=== PATIENT | female | born 1940 | race African-American/Black ===

== ENCOUNTER 2020-03-13 19:02 | Emergency (ER) | payer OTHER ==
[~2020-03-13] VITALS: Ht 167.6 cm; Wt 90.7 kg
[~2020-03-13 19:02] MED LIST: AMLO5TAB15 PO; ASPI-404 PO; ATEN50TA PO; CLON0.3T46 PO; FURO1TAB31 PO; GABA-339 PO; GLIP10TA9 PO; LISI30TA4 PO; LISI40TA PO; LORA5SOL15 PO; MULT1TAB23 PO; MULT1TAB95 PO; OMEP20TA PO; POTA10TA51 PO; PRAV20TA3 PO; TIOT1AER2 IN
[2020-03-13 20:16] VITALS: BP 181/81
[2020-03-13 20:34] LABS: Basophils # (auto) 0.1 10 ^3/uL (0-0.2); Eosinophils # (auto) 0.1 10 ^3/uL (0-0.8); Monocytes # (auto) 0.8 10 ^3/uL (0-1.3); Neutrophils # (auto) 7.2 10 ^3/uL (1.6-8.6)
[2020-03-13 20:36] LABS: Basophils % (auto) 0.8 % (0.0-2.0); Eosinophils % (auto) 1.2 % (0.0-7.0); Hematocrit 45.1 % (36.0-46.0); Hemoglobin 13.3 g/dL (12.2-16.2); Lymphocytes % (auto) 10.4 % (10.0-50.0); Mean Corpuscular Hemoglobin 22.5 pg (28.0-32.0); Mean Corpuscular Hgb Conc. 29.4 g/dL (32.0-36.0); Mean Corpuscular Volume 76.6 fL (80.0-100.0); Monocytes % (auto) 8.8 % (0.0-12.0); Neutrophils % (auto) 78.8 % (37.0-80.0); Nucleated Red Blood Cells % 0.3 %; Platelet Count (auto) 236 10^3/uL (140-450); Red Blood Cells 5.89 10^6/uL (4.0-5.20); White Blood Cell 9.1 10^3/uL (4.4-10.8)
[2020-03-13 20:41] LABS: Red Cell Distribution Width 20.4 % (11.8-14.3)
[2020-03-13] MEDS ORDERED: FUROSEMIDE 40 MG/4 ML VIAL IV ONE (20:45)
[2020-03-13 20:54] LABS: INR 1.15 (0.9-1.15); Partial Thromboplastin Time 22.2 sec (23.64-32.05)
[2020-03-13 21:14] LABS: Albumin 3.1 g/dL (3.4-5.0); Calcium 8.2 mg/dL (8.5-10.1); Potassium 4.5 mmol/L (3.5-5.1)
[2020-03-13 21:20] LABS: BUN/Creatinine Ratio 12.4; Bilirubin, Total 0.7 mg/dL (0.2-1.0); Total Protein 6.3 g/dL (6.4-8.2)
== END 2020-03-13 21:30 | disposition left against medical advice (07) ==
LOC: ER 19:02
DX: R09.02 Hypoxemia (principal); I11.0 Hypertensive heart disease with heart failure; I50.9 Heart failure, unspecified; K21.9 Gastro-esophageal reflux disease without esophagitis; E11.9 Type 2 diabetes mellitus without complications; J44.9 Chronic obstructive pulmonary disease, unspecified; E78.5 Hyperlipidemia, unspecified; Z90.49 Acquired absence of other specified parts of digestive tract; Z87.891 Personal history of nicotine dependence; Z90.710 Acquired absence of both cervix and uterus; Z90.89 Acquired absence of other organs
CPT/HCPCS: 36415; 71045; 80053; 82728; 83605; 83880; 84484; 85025; 85379; 85610; 85730; 87040; 87070; 87804; 87880; 93005

== ENCOUNTER 2022-02-05 12:16 | Emergency (ER) | payer OTHER ==
[~2022-02-05] VITALS: Ht 165.1 cm; Wt 90.7 kg
[~2022-02-05 12:16] MED LIST changes: +AMLO-489 PO; -AMLO5TAB15 PO; -ASPI-404 PO; +ASPI-543 PO; -LISI40TA PO; +LISI40TA11 PO
[2022-02-05 15:41] LABS: Urine Amorphous Crystal FEW /hpf (None Seen); Urine Bacteria FEW /hpf (None Seen); Urine Blood Negative /uL (Negative); Urine Hyaline Cast FEW /lpf (0 - 2); Urine Specific Gravity 1.012 (1.001-1.035); Urine WBC 6 /hpf (0 - 5)
[2022-02-05 16:30] VITALS: BP 132/69
[2022-02-05] MEDS ORDERED: ACETAMINOPHEN 325 MG TAB PO ONE (16:45)
[2022-02-05] MEDS ORDERED: ACET-1079 PO (16:45)
[2022-02-05] MEDS ORDERED: CIPROFLOXACIN HYDROCHLORIDE 250 MG TAB PO ONE (17:30)
== END 2022-02-05 17:59 | disposition home or self-care (01) ==
LOC: ER 12:16
DX: G62.9 Polyneuropathy, unspecified (principal); I10 Essential (primary) hypertension; E11.9 Type 2 diabetes mellitus without complications; E78.5 Hyperlipidemia, unspecified; J44.9 Chronic obstructive pulmonary disease, unspecified; Z90.49 Acquired absence of other specified parts of digestive tract; Z90.710 Acquired absence of both cervix and uterus; Z90.89 Acquired absence of other organs; Z87.891 Personal history of nicotine dependence; Z79.82 Long term (current) use of aspirin; Z79.899 Other long term (current) drug therapy; Z88.0 Allergy status to penicillin
CPT/HCPCS: 81001; 87086